=== PATIENT | female | born 1940 | race Caucasian/White ===

== ENCOUNTER 2018-02-03 07:13 | Inpatient (IN) | payer OTHER ==
[~2018-02-03] VITALS: Ht 142.2 cm; Wt 73.5 kg
[~2018-02-03 07:13] MED LIST: LOTREL 10-40 M1 EACH PO; METFORMIN HCL500 MG PO; TENORMIN100 M1 PO
[2018-02-06] MEDS ORDERED: DUI500 PO (08:48)
[2018-02-06] MEDS ORDERED: XARELTO10 MG PO (08:48)
[2018-02-06] MEDS ORDERED: PERCOCET 5-3251 EACH PO (08:48)
== END 2018-02-06 12:28 | DRG 470 ==
LOC: SURH 07:13 → O/R 07:13 → SURH 08:39 → SURG 13:48 → SURH 14:44
PROVIDERS: Orthopaedic Surgery
PROC: 0SRD0J9 Replacement of Left Knee Joint with Synthetic Substitute, Cemented, Open Approach (ICD-10-PCS; principal; 2018-02-03 12:30)
DX: M17.12 Unilateral primary osteoarthritis, left knee (principal); D62 Acute posthemorrhagic anemia; I10 Essential (primary) hypertension; E11.9 Type 2 diabetes mellitus without complications; M81.0 Age-related osteoporosis without current pathological fracture; E66.8 Other obesity; M22.12 Recurrent subluxation of patella, left knee; E78.4 Other hyperlipidemia